=== PATIENT | female | born 1950 | race Caucasian/White ===

== ENCOUNTER → 2023-02-15 11:12 | Outpatient (CLI) | payer MEDICARE, SELFPAY ==
--- NOTE | ~2023-02-15 | US_ITS ---
EXAMINATION: US thyroid DATE: 02/15/2023 11:26 INDICATION: Hyperthyroidism. TECHNIQUE: Multiple ultrasound images of the thyroid were obtained. COMPARISON: None. FINDINGS: The right thyroid lobe measures 3.9 x 1.7 x 1.4 cm. The left thyroid lobe measures 4.0 x 1.6 x 1.8 c m. The thyroid is diffusely heterogeneous and hypoechoic. No discrete nodule. Vascularity is increas ed. IMPRESSION: 1. Heterogeneous, hypervascular thyroid, consistent with chronic lymphocytic (Jose) thyroiditis. Reviewed, dictated and finalized at location A. IMPRESSION: 1. Heterogeneous, hypervascular thyroid, consistent with chronic lymphocytic (H ashimoto) thyroiditis.
== END ==
PROVIDERS: PCP Nurse Practitioner; Visit Provider Nurse Practitioner
DX: E05.90 Thyrotoxicosis, unspecified without thyrotoxic crisis or storm (principal)
CPT/HCPCS: 76536

== ENCOUNTER 2025-09-25 15:53 | Emergency (ER) | payer MEDICARE, SELFPAY ==
[2025-09-25] VITALS (7 sets, daily range): BP systolic 141–149; BP diastolic 62–67; PULSE 77–85; RESP 16–22; TEMP 36.7–36.8; O2SAT 83–94
--- NOTE | ~2025-09-25 | CT_ITS ---
CT brain wo con HISTORY:dizziness COMPARISON: None. TECHNIQUE: Axial images were obtained of the head without intravenous contrast. FINDINGS: No acute intracranial hemorrhage, mass effect or midline shift. No extra-axial fluid collections. Calcified extra-axial over the left frontal lobe may represent a meningioma. This mass measures 2.9 x 1.9 cm calvarium is intact. Visualized paranasal sinuses and mastoid air cells are clear. IMPRESSION: No acute intracranial hemorrhage or extra axial fluid collections. Calcified extra-axial mass over the left frontal lobe suggestive of a meningioma. All CT scans at this facility are performed using low dose modulation techniques as appropriate to perform exam including the following: automated exposure control; use of iterative reconstruction technique; adjustment of the mA and/or kV according to patient size (this includes techniques or standardized protocols for targeted exams where dose is matched to indication/reason for exam). Reviewed, dictated and finalized at location S. BOAT OPERATOR IMPRESSION: No acute intracranial hemorrhage or extra axial fluid collections. Calcified extra-axial mass over the left frontal lobe suggestive of a meningiom a. All CT scans at this facility are performed using low dose modulation techniqu es as appropriate to perform exam including the following: automated exposure c ontrol; use of iterative reconstruction technique; adjustment of the mA and/or kV according to patient size (this includes techniques or standardized protocol s for targeted exams where dose is matched to indication/reason for exam).
--- NOTE | ~2025-09-25 | XR_ITS ---
EXAMINATION: XR chest 2V, 09/25/2025 16:53 VICE PRESIDENT OF PRODUCT MARKETING HISTORY: cp? COMPARISON: No comparisons available. Technique: 2 views obtained. Findings: The lungs are clear, no effusion. No pneumothorax. Heart is normal size. Mediastinal and hilar contours are within normal limits. Bony thorax no acute abnormality. Impression: No acute cardiopulmonary abnormality. Reviewed, dictated and finalized at location P. PRESIDENT OF PRODUCT MARKETING Impression: No acute cardiopulmonary abnormality.
--- OUTSIDE RECORDS SUMMARY | 2025-09-25 14:30 | XMS_ITS | Encounter Summary ---
Author Organization [facility] Address [address] [place] [address] Care Team Providers Care Offset Printing Operator Name Role Phone Abner Carvalho MD Unavailable [phone] Neda Butt MD Primary Care Provider [phone] Reason for Referral * Consultation (Routine) - Pending Review Specialty Diagnoses / Procedures Referred By David dexter Referred To Contact Otolaryngology Diagnoses Non-recurrent acute serous otitis media of right ear Mariposa Knott NP [address] [facility] [address] [place] [address] Phone: tel: fax: [facility] - [address] [address] Phone: tel: fax: Referral ID Status Reason Start Date Expiration Date Visits Requested Visits Authorized [id number] Pending Review Specialty Services Required 5 10/25/2026 1 1 Question Answer Please select the performing region: [facility] [[id number]] Please select the performing department: [facility] [[id number]] # of visits: 1 LIQUORS SALES REPRESENTATIVE Reason for Visit * Reason Comments Hypertension Took baby aspirin wh en felt tingling, patient has had SOB worsening the past 6 months per daughter. Encounter Details Date Type Department Care Team (Late Contact Info) Description 09/25/2025 2:30 PM MALT LIQUORS SALES REPRESENTATIVE Office Visit [facility] at [address] [phone] Mariposa Knott, [employer] [address] [place] [address] [address] [place] [address] Numbness and tingling in left arm (Primary Dx); Shortness of breath; Non-recurrent acute serous otitis media of right ear Social History Tobacco Use Types Packs/Day Years Used Date Smoking Tobacco: Every Day Cigarettes 1 50 Smokeless Tobacco: Never Alcohol Use Standard Drinks/Week Comments Not Currently 0 (1 standard drink = 0.6 oz pur e alcohol) AUDIT-C Answer Date Recorded Frequency of Alcohol Consumption Never 01/11/2019 Average Number of Drinks Not on file 019 Frequency of Binge Drinking Not on file 12/2018 PHQ-2 Answer Date Recorded PHQ-2 Total Score (If total score is 3 or more points, staff should administer the PHQ-9) 2 04/16/2020 Comments No Sex and Gender Information Value Date Recorded Sex Assigned at Not on file Legal Sex Female 2:23 AM MALT LIQUORS SALES REPRESENTATIVE Gender Identity Not on file Sexual Orientation Not on file documented as of this encounter Last Filed Vital Signs Vital Sign Reading Time Taken Comments Blood Pressure 164/76 09/25/2025 2:34 PM MALT LIQUORS SALES REPRESENTATIVE Pulse 100 09/25/2025 2:34 PM MALT LIQUORS SALES REPRESENTATIVE Temperature 36.6 C (97.9 F) 09/25/2025 2:34 PM MALT LIQUORS SALES REPRESENTATIVE Respiratory Rate 18 09/25/2025 2:34 PM MALT LIQUORS SALES REPRESENTATIVE Oxygen Saturation 94% 09/25/2025 2:3 4 PM MALT LIQUORS SALES REPRESENTATIVE Range between 94 and 96 Inhaled Oxygen Concentration - - Weight 65.8 kg (145 lb) 09/25/2025 2:34 PM MALT LIQUORS SALES REPRESENTATIVE Height 165.1 cm (5' 5) 09/25/2025 2:34 PM MALT LIQUORS SALES REPRESENTATIVE Body Mass Index 24.13 09/25/2025 2:34 PM MALT LIQUORS SALES REPRESENTATIVE documented in this encounter Patient Instructions * Patient Instructions* Mariposa Knott, RUTH - 09/25/2025 2:30 PM MALT LIQUORS SALES REPRESENTATIVE If you have no improvement or worsening of your symptoms, please follow up with your Primary Care Provider, Convenient Care and or Emergency Room. I strive to provide you with EXCELLENT service. You may receive a survey after your visit today. If you cannot rate your experience as EXCELLENT, please let us know how we can improve and better meet your needs. Thank you for choosing [facility]! It was my pleasure to see you today, I hope you feel better soon! Mariposa Knott LAMP REPLACER LIQUORS SALES REPRESENTATIVE documented in this encounter Plan of Treatment Scheduled Referrals Name Type Priority Associated Diagnoses Order Schedule Ambulatory referral to ENT Outpatient Referral Routine Non-recurrent acute serous otitis media of right ear Expected: 10/09/2025 (Approximate), Expires: 09/25/2026 documented as of this encounter Procedures Procedure Name Priority Date/Time Associated Diagnosis Comments ECG 12-LEAD Routine 09/25/2025 3:22 PM MALT LIQUORS SALES REPRESENTATIVE Numbness and tingling in left arm Shortness of breath ECG 12-LEAD Routine 09/25/2025 3:10 PM MALT LIQUORS SALES REPRESENTATIVE Numbness and tingling in left arm documented in this encounter Results * ECG 12 lead (09/25/2025 3:22 PM MALT LIQUORS SALES REPRESENTATIVE) Mariposa Knott [employer]ER ECG ORDERABLES Final Resu lt * ECG 12 lead (09/25/2025 3:10 PM MALT LIQUORS SALES REPRESENTATIVE) Mariposa Knott [employer]ER ECG ORDERABLES Final Resu lt documented in this encounter Visit Diagnoses Diagnosis Numbness and tingling in left arm- Primary Shortness of breath Non-recurrent acute serous otitis media of right ear documented in this encounter Care Teams Offset Printing Operator Relationship Specialty Start Date End Date Neda Butt MD PCP - General Nurse Practitioner 08/05/23 Abner Carvalho MD Consulting Physician Neurology 01/12/19 documented as of this encounter
--- NOTE | 2025-09-25 15:58 | ECG_ITS ---
Test Date: 2025-09-25 16:30:23 Measurements Intervals [place] Rate: 82 P: 78 DC: 162 QRS: 49 QRSD: 108 T: 68 QT: 376 QTc: 440 Interpretive Statements SINUS RHYTHM POSSIBLE ANTERIOR MYOCARDIAL INFARCTION , OF INDETERMINATE AGE BASELINE ARTIFACT- I, II, III, AVR, AVL ,AVF, V1-V2 ABNORMAL ECG No previous ECG available for comparison Electronically Signed On 09-25-2025 20:52:14 SUGAR SAMPLER by Marco Camacho D.O.
[2025-09-25] MEDS: ASPIRIN 81 MG CHEWABLE TABLET 324 MG PO (16:57)
--- NOTE | 2025-09-25 16:58 | PC.NURSE ---
PT TOOK 2 81 MG ASA AT HOME THIS AM
[2025-09-25 16:59] LABS: Add Urine Microscopic? NO; Appearance Urine Clear (Clear); Glucose Urine UA Negative (Negative); Hematocrit 43.1 % (37.0-47.0); Hemoglobin 14.3 g/dL (12.0-15.0); Immature Granulocyte Percent A 0.4 % (0-0.5); Leukocyte Esterase Ur Negative LEU/UL (Negative); Lymphocytes Absolute Auto 2.23 K/mm3 (0.9-3.2); Mean Corpuscular HGB Conc 33.2 g/dl (32-36); Mean Corpuscular Hemoglobin 27.2 pg (26-34); Mean Corpuscular Volume 81.9 fl (80-100); Nitrate Urine Negative (Negative); Nucleated Red Blood Cells Absolute Auto 0.000 K/mm3 (0.0-0.012); Nucleated Red Blood Cells Perc 0.0 % (0.0-0.2); Platelet Count Result 154 k/mm3 (150-375); Red Blood Count 5.26 M/mm3 (4.2-5.4); Specific Grav Ur 1.007 (1.001-1.035); White Blood Count 8.2 K/mm3 (4.5-10.0)
--- NOTE | 2025-09-25 17:06 | ED_ITS ---
HPI - Chest Pain General Chief Complaint: Chest Pain <Magy Morales PA-C - Last Filed: 09/27/25 09:18> Stated Complaint: chest pain work up <Magy Morales PA-C - Last Filed: 09/27/25 09:18> Time Seen by Provider: 09/25/25 17:06 <Magy Morales PA-C - Last Filed: 09/27/25 09:18> Focused HPI: This is a 75 year old female that presents to the ER for tingling down her left arm. Reports this happened at 12 and lasted for 5-10 minutes. Reports some lightheadedness, dizziness. Denies chest pain, shortness of breath. GENERAL: Well-appearing, well-nourished, and in no acute distress. HEAD: Normocephalic, atraumatic. CHEST: No respiratory distress. Scattered wheezing. HEART: Regular rate and rhythm.? NEURO: ?Alert and oriented x3. Patient screened in triage and initial orders placed.? ?Additional care and disposition to be based upon?diagnostic testing and treatment. <Magy Morales PA-C - Last Filed: 09/27/25 09:18> History of Present Illness HPI narrative: Agree with above HPI. <RAYO Ramos Last Filed: 09/26/25 02:51> Related Data Allergies/Adverse Reactions: Allergies Allergy/AdvReac Type Severity Reaction Status Date / Time Sulfa (Sulfonamide Allergy Severe Dyspnea / Verified 09/25/25 15:57 Antibiotics) SOB <Magy Morales PA-C - Last Filed: 09/27/25 09:18> Review of Systems 2 Review of Systems: All systems reviewed & are unremarkable except as noted in HPI and below <RAYO Ramos Last Filed: 09/26/25 02:51> PMFSH Past Medical History Medical History: Medical History (Updated 09/26/25 @ 00:00 by Judy Carrera) Hypertension <Magy Morales PA-C - Last Filed: 09/27/25 09:18> Social History Social History: Social History (Updated 09/25/25 @ 17:07 by Magy Morales PA-C) Smoking status: Current every day smoker Tobacco type: cigarettes <Magy Morales PA-C - Last Filed: 09/27/25 09:18> Exam 2 Narrative: GENERAL: No acute distress. Tearful. HEAD: Normocephalic, atraumatic. EYES: PERRLA and EOMI. ENT: Nares clear, no rhinorrhea or epistaxis. Mucous membranes moist. Oropharynx without tonsillar hypertrophy exudate or other lesions. Bilateral TMs pearly donaldson non-bulging NECK: Supple. No adenopathy or masses. No carotid bruits or JVD CHEST: Lower right lung field mild expiratory wheezing. No respiratory distress. HEART: Regular rate and rhythm. No murmur heard. Normal peripheral pulses. ABDOMEN: Soft, nontender, nondistended, normal active bowel sounds. EXTREMITIES: Normal range of motion. No edema. SKIN: Warm, dry, no rash. NEURO: No focal deficits. Alert and oriented x3. PSYCH: Normal mood and affect <RAYO Ramos Last Filed: 09/26/25 02:51> Course Vital Signs Vital signs: Vital Signs Temperature 98.1 F 09/25/25 16:20 Pulse Rate 83 09/25/25 16:20 Respiratory Rate 16 09/25/25 16:20 Blood Pressure 141/62 H 09/25/25 16:20 Pulse Oximetry 83 L 09/25/25 16:20 Temperature 98.3 F 09/25/25 20:32 Pulse Rate 80 09/25/25 20:32 Respiratory Rate 17 09/25/25 20:32 Blood Pressure 143/67 H 09/25/25 20:32 Pulse Oximetry 93 09/25/25 20:32 Oxygen Delivery Room Air 09/25/25 18:31 <Magy Morales PA-C - Last Filed: 09/27/25 09:18> Vital Signs Temperature 98.1 F 09/25/25 16:20 Pulse Rate 83 09/25/25 16:20 Respiratory Rate 16 09/25/25 16:20 Blood Pressure 141/62 H 09/25/25 16:20 Pulse Oximetry 83 L 09/25/25 16:20 Temperature 98.3 F 09/25/25 20:32 Pulse Rate 80 09/25/25 20:32 Respiratory Rate 17 09/25/25 20:32 Blood Pressure 143/67 H 09/25/25 20:32 Pulse Oximetry 93 09/25/25 20:32 Oxygen Delivery Room Air 09/25/25 18:31 <RAYO Ramos - Last Filed: 09/26/25 02:51> [facility] Narrative Medical decision making narrative: This is a 75 year old female that presents to the ER for tingling down her left arm. Reports this happened at 12 and lasted for 5-10 minutes. Reports some lightheadedness, dizziness. Denies chest pain, shortness of breath. Upon my initial assessment, patient is tearful reporting no symptoms stating she is frustrated and wants to go home. I was able to calm the patient down to understand what was going on today. Patient states she went to today to rule out a stroke due to dizziness. She states they ruled it out but that they sent her to the ED as she had minor left arm numbness/tingling, reports never having chest pain. CT head demonstrates no acute abnormalities. Intact neuro exam. Administered DuoNeb due to mild wheezing on exam. Wheezing improved after treatment. Troponin negative. Cardiac risk factors reviewed. HEART score = 3. EKGs and labs are without significant high risk changes. Patient is felt likely low risk for ACS and reasonable for further risk stratification testing as an outpatient. Pain was not sudden or maximal in onset without tearing or ripping quality. No other signs or symptoms to suggest aortic dissection. A low-risk Wells criteria is noted, PE is felt to be unlikely. No pneumonia seen on evaluation today. Patient is felt to be a reasonable candidate for continued evaluation as an outpatient. Given reasons to return. <RAYO Ramos - Last Filed: 09/26/25 02:51> Differential Diagnosis Differential Diagnosis: Differential diagnostic considerations for chest pain include ACS, aortic dissection, pneumothorax, pulmonary embolus, [place]/pericarditis, angina, STEMI, esophageal abnormality, GI etiology, pneumonia, rib fracture, biliary colic, atypical/non-cardiac (MSK, etc). <RAYO Ramos - Last Filed: 09/26/25 02:51> Lab Data [facility] Lab Attestation statement: I personally reviewed the patient's lab results. <RAYO Ramos - Last Filed: 09/26/25 02:51> Result diagrams: 09/25/25 16:51 09/25/25 16:51 <Magy Morales PA-C - Last Filed: 09/27/25 09:18> Labs: Lab Results 09/25/25 09/25/25 Range/Units 16:51 19:39 WBC 8.2 (4.5-10.0) K/mm3 RBC 5.26 (4.2-5.4) M/mm3 Hgb 14.3 (12.0-15.0) g/dL Hct 43.1 (37.0-47.0) % MCV 81.9 (80-100) fl MCH 27.2 (26-34) pg MCHC 33.2 (32-36) g/dl RDW 12.1 (11.5-14.5) % Plt Count 154 (150-375) k/mm3 MPV 11.5 H (7.4-10.4) fl Immature Gran % (Auto) 0.4 (0-0.5) % Neut % (Auto) 65.0 (45.5-73.1) % Lymph % (Auto) 27.3 (18.3-44.2) % [place] % (Auto) 6.7 (2.6-8.5) % Eos % (Auto) 0.5 (0-4.4) % Baso % (Auto) 0.1 L (0.2-1.2) % Lymph # (Auto) 2.23 (0.9-3.2) K/mm3 [place] # (Auto) 0.6 (0.1-0.6) K/mm3 Eos # (Auto) 0.0 (0-0.3) K/mm3 Baso # (Auto) 0.0 (0.0-0.1) K/mm3 Abs Immat Gran (auto) 0.03 (0.00-0.031) K/mm3 Absolute Neuts (auto) 5.3 (1.3-6.7) K/mm3 Absolute Nucleated RBC 0.000 (0.0-0.012) K/mm3 Nucleated RBC % 0.0 (0.0-0.2) % PT 14.0 (11.1-14.7) Seconds INR 1.1 APTT 29.1 (22.3-36.8) Seconds Sodium 140 (137-145) mmol/L Potassium 4.1 (3.4-5.0) mmol/L Chloride 106 (98-107) mmol/L Carbon Dioxide 23 (22-30) mmol/L Anion Gap 11 (4-12) mmol/L BUN 11 (7-17) mg/dL Creatinine 0.61 L (0.7-1.0) mg/dL Estim Creat Clear Calc 63 ml/min Estimated GFR > 60 (59 - ) Glucose 103 (65-110) mg/dL Calcium 9.5 (8.4-10.2) mg/dL Total Bilirubin 0.6 (0.2-1.3) mg/dL AST 47 H (14-36) U/L ALT 32 (6-35) U/L Alkaline Phosphatase 112 (38-126) U/L Troponin I < 0.012 < 0.012 (0.000-0.034) ng/mL Total Protein 8.9 H (6.3-8.2) g/dL Albumin 4.5 (3.5-5.1) g/dL Lipase 97 (23-300) U/L Urine Color Yellow (Yellow) Urine Appearance Clear (Clear) Urine pH 5.5 (5.0-9.0) Ur Specific Delta 1.007 (1.001-1.035) Urine Protein Negative (Negative) mg/dL Urine Glucose (UA) Negative (Negative) mg/dL Urine Ketones Negative (Negative) mg/dL Ur Blood (Man) Negative (Negative) Urine Nitrate Negative (Negative) Urine Bilirubin Negative (Negative) Urine Urobilinogen 0.2 (<2.0) mg/dL Leukocyte Esterase Rfl Negative (Negative) CHANCE/UL <Magy Morales PA-C - Last Filed: 09/27/25 09:18> Lab Results 09/25/25 09/25/25 Range/Units 16:51 19:39 WBC 8.2 (4.5-10.0) K/mm3 RBC 5.26 (4.2-5.4) M/mm3 Hgb 14.3 (12.0-15.0) g/dL Hct 43.1 (37.0-47.0) % MCV 81.9 (80-100) fl MCH 27.2 (26-34) pg MCHC 33.2 (32-36) g/dl RDW 12.1 (11.5-14.5) % Plt Count 154 (150-375) k/mm3 MPV 11.5 H (7.4-10.4) fl Immature Gran % (Auto) 0.4 (0-0.5) % Neut % (Auto) 65.0 (45.5-73.1) % Lymph % (Auto) 27.3 (18.3-44.2) % [place] % (Auto) 6.7 (2.6-8.5) % Eos % (Auto) 0.5 (0-4.4) % Baso % (Auto) 0.1 L (0.2-1.2) % Lymph # (Auto) 2.23 (0.9-3.2) K/mm3 [place] # (Auto) 0.6 (0.1-0.6) K/mm3 Eos # (Auto) 0.0 (0-0.3) K/mm3 Baso # (Auto) 0.0 (0.0-0.1) K/mm3 Abs Immat Gran (auto) 0.03 (0.00-0.031) K/mm3 Absolute Neuts (auto) 5.3 (1.3-6.7) K/mm3 Absolute Nucleated RBC 0.000 (0.0-0.012) K/mm3 Nucleated RBC % 0.0 (0.0-0.2) % PT 14.0 (11.1-14.7) Seconds INR 1.1 APTT 29.1 (22.3-36.8) Seconds Sodium 140 (137-145) mmol/L Potassium 4.1 (3.4-5.0) mmol/L Chloride 106 (98-107) mmol/L Carbon Dioxide 23 (22-30) mmol/L Anion Gap 11 (4-12) mmol/L BUN 11 (7-17) mg/dL Creatinine 0.61 L (0.7-1.0) mg/dL Estim Creat Clear Calc 63 ml/min Estimated GFR > 60 (59 - ) Glucose 103 (65-110) mg/dL Calcium 9.5 (8.4-10.2) mg/dL Total Bilirubin 0.6 (0.2-1.3) mg/dL AST 47 H (14-36) U/L ALT 32 (6-35) U/L Alkaline Phosphatase 112 (38-126) U/L Troponin I < 0.012 < 0.012 (0.000-0.034) ng/mL Total Protein 8.9 H (6.3-8.2) g/dL Albumin 4.5 (3.5-5.1) g/dL Lipase 97 (23-300) U/L Urine Color Yellow (Yellow) Urine Appearance Clear (Clear) Urine pH 5.5 (5.0-9.0) Ur Specific Delta 1.007 (1.001-1.035) Urine Protein Negative (Negative) mg/dL Urine Glucose (UA) Negative (Negative) mg/dL Urine Ketones Negative (Negative) mg/dL Ur Blood (Man) Negative (Negative) Urine Nitrate Negative (Negative) Urine Bilirubin Negative (Negative) Urine Urobilinogen 0.2 (<2.0) mg/dL Leukocyte Esterase Rfl Negative (Negative) CHANCE/UL <RAYO Ramos - Last Filed: 09/26/25 02:51> Imaging Data Attestation: I personally reviewed and interpreted this imaging study as follows: < RAYO Ramos - Last Filed: 09/26/25 02:51> Radiologist's impression: ITS Impressions Chest X-Ray 09/25/25 17:11 Impression: No acute cardiopulmonary abnormality. Head CT 09/25/25 19:25 IMPRESSION: No acute intracranial hemorrhage or extra axial fluid collections. Calcified extra-axial mass over the left frontal lobe suggestive of a meningioma. All CT scans at this facility are performed using low dose modulation techniques as appropriate to perform exam including the following: automated exposure control; use of iterative reconstruction technique; adjustment of the mA and/or kV according to patient size (this includes techniques or standardized protocols for targeted exams where dose is matched to indication/reason for exam). <Magy Morales PA-C - Last Filed: 09/27/25 09:18> ITS Impressions Chest X-Ray 09/25/25 17:11 Impression: No acute cardiopulmonary abnormality. Head CT 09/25/25 19:25 IMPRESSION: No acute intracranial hemorrhage or extra axial fluid collections. Calcified extra-axial mass over the left frontal lobe suggestive of a meningioma. All CT scans at this facility are performed using low dose modulation techniques as appropriate to perform exam including the following: automated exposure control; use of iterative reconstruction technique; adjustment of the mA and/or kV according to patient size (this includes techniques or standardized protocols for targeted exams where dose is matched to indication/reason for exam). <RAYO Ramos Last Filed: 09/26/25 02:51> ECG Data EKG #1: ECG completion date: 09/25/25 <RAYO Ramos Last Filed: 09/26/25 02:51> ECG completion time: 16:30 <RAYO Ramos Last Filed: 09/26/25 02:51> normal rate, sinus rhythm and no acute changes <RAYO Ramos Last Filed: 09/26/25 02:51> Critical Care Time Critical Care Time Critical Care Time: No <NADIAR Luz Last Filed: 09/27/25 09:18> Discharge Plan Discharge Clinical Impression: Numbness and tingling in left arm, Dizziness <NADIRA Luz Last Filed: 09/27/25 09:18> Patient Disposition: Home <NADIRA Luz Last Filed: 09/27/25 09:18> Condition: Stable <NADIRA Luz Last Filed: 09/27/25 09:18> Instructions: COPD (Chronic Obstructive Pulmonary Disease) (ED), Dizziness (ED), Chronic Lung Disease and Infection Prevention (ED) <NADIRA Luz Last Filed: 09/27/25 09:18> Additional Instructions: Return to the emergency department if you experience fever, chest pain, shortness of breath, abdominal pain with nausea and vomiting, weakness, numbness/tingling, or any other symptoms that are concerning to you. Follow up with primary care doctor. <Magy Morales PA-C - Last Filed: 09/27/25 09:18> Patient Language: Kyrgyz <NADIRA Luz Last Filed: 09/27/25 09:18> Follow-up/Referrals: Filomena,ANKUR Stephenson [Primary Care Provider, Unknown] <Magy Morales PA-C - Last Filed: 09/27/25 09:18> Quality HEART score for chest pain patients History: slightly suspicious <RAYO Ramos - Last Filed: 09/26/25 02:51> ECG: normal <RAYO Ramos - Last Filed: 09/26/25 02:51> Age: > or = to 65 years <RAYO Ramos - Last Filed: 09/26/25 02:51> Risk factors: 1 or 2 risk factors <RAYO Ramos Last Filed: 09/26/25 02:51> Troponin: < or = to 1x normal limit <RAYO Ramos - Last Filed: 09/26/25 02:51> Heart score: 3 <Magy Morales PA-C - Last Filed: 09/27/25 09:18> 3 <RAYO Ramos - Last Filed: 09/26/25 02:51>
[2025-09-25 17:12] LABS: Alanine Aminotransferase 32 U/L (6-35); Albumin Level 4.5 g/dL (3.5-5.1); Alkaline Phosphatase 112 U/L (38-126); Anion Gap 11 mmol/L (4-12); Aspartate Amino Transferase 47 U/L (14-36); Bilirubin,Total 0.6 mg/dL (0.2-1.3); Blood Urea Nitrogen 11 mg/dL (7-17); Calcium 9.5 mg/dL (8.4-10.2); Carbon Dioxide 23 mmol/L (22-30); Chloride 106 mmol/L (98-107); Estimated CRCL calculation 63 ml/min; Estimated Glomerular Filt Rate > 60; Glucose 103 mg/dL (65-110); INR 1.1; Lipase 97 U/L (23-300); Potassium 4.1 mmol/L (3.4-5.0); Prothrombin Time 14.0 Seconds (11.1-14.7); Sodium 140 mmol/L (137-145); Total Protein 8.9 g/dL (6.3-8.2)
[2025-09-25 17:13] LABS: Partial Thromboplastin Time 29.1 Seconds (22.3-36.8)
[2025-09-25 17:22] LABS: Troponin I < 0.012 ng/mL (0.000-0.034)
--- OUTSIDE RECORDS SUMMARY | 2025-09-25 17:57 | XMS_ITS | Clinical Summary ---
Author Organization [facility] Address [address] [place] [address] Care Team Providers Care Corn Husk Baler Name Role Phone Abner Carvalho MD Unavailable [phone] Neda Butt MD Primary Care Provider [phone] Allergies Active Allergy Reactions Criticality Noted Date Comments Sulfa (Sulfonamide Antibiotics) Anaphylaxis High 12/2018 Medications aspirin 81 mg enteric coated tablet Take 1 tablet (81 mg total) by mouth daily 30 tablet 11 01/13/2019 Active amLODIPine (NORVASC) 5 mg tablet Take 1 tablet (5 mg total) by mouth daily 04/16/2023 Active lisinopriL (PRINIVIL,ZESTR IL) 10 mg tablet 09/06/2024 Active ALPRAZolam (XANAX) 0.25 mg tabletIndicatio ns:Anxiety Take 1 tablet (0.25 mg total) by mouth nightly as needed for anxiety 10 tablet 11/20/2024 Active Active Problems Problem Noted Date Diagnosed Date Anxiety 11/20/2024 Essential hypertension 11/20/2024 Hyperthyroidism 11/30/2023 Assessment & Plan (09/13/2024 1:43 PM CARBON PAPER INTERLEAFER): Chronic problem. Currently taking methimazole 2.5mg daily. Will update labs today. Does not mychart. Verified phone #/address to contact re: results. Assessment & Plan (11/30/2023 1:10 PM CARBON PAPER INTERLEAFER): Chronic, improving control Patient currently on methimazole 2.5 mg oral daily Recheck thyroid function test today and further plans based on it Reviewed patient thyroid labs from today Thyroid function test are normal range Continue current dose of methimazole Repeat thyroid labs in 3 months Meningioma 03/20/2019 Assessment & Plan (03/20/2019 11:46 AM CDT): Incidental 3 cm left frontal meningioma found on MRI. Could consider repeat imaging in one year to document stability. Visual changes 01/11/2019 Assessment & Plan (03/20/2019 11:44 AM CDT): Tunnel vision changes likely pre-syncopal although did not right sided 50% stenosis and left sided < 40% stenosis that should be monitored with repeat MRA in 6-12 months given continued smoking and hypertension. She has started aspirin and statin for stroke risk reduction and aware that continued hypertension and smoking are significant risk factors for worsened carotid stenosis and stroke. I encouraged her to monitor blood pressure at home and consider anti- hypertensive per PCP if continues to be elevated. I again addressed smoking cessation and she remains precontemplative although did allow that maybe someday I'll think about quitting. Call if recurrent issues/new concern and follow up in 3-6 months and can consider repeat MRA neck at that time. Stenosis of right carotid artery 01/11/2019 Tobacco abuse 01/11/2019 Goiter 01/11/2019 Encounters Date Type Department Care Team Description 09/25/2025 2:30 PM CARBON PAPER INTERLEAFER Office Visit [facility] at [address] [address] Mariposa Knott, RUTH Numbness and tingling in left arm (Primary Dx); Shortness of breath; Non-recurrent acute serous otitis media of right ear from Last 3 Months Surgical History Surgery Date Site/Laterality Comments HYSTERECTOMY CATARACT EXTRACTION 12/10/2019 - 01/09/2020 Left Medical History Medical History Date Comments Brain tumor (benign) Hyperlipidemia Allergic Meningioma (HCC) HTN (hypertension) Carotid artery stenosis Family History Medical History Relation Name Comments Lung cancer Sister 1 Bladder Cancer Sister 2 Relation Name Status Comments Brother Alive Father Mother Sister 1 Alive Sister 2 Alive Social History Tobacco Use Types Packs/Day Years [...] on file Legal Sex Female 2:23 AM CARBON PAPER INTERLEAFER Gender Identity Not on file Sexual Orientation Not on file Last Filed Vital Signs Vital Sign Reading Time Taken Comments Blood Pressure 164/76 09/25/2025 2:34 PM CARBON PAPER INTERLEAFER Pulse 100 09/25/2025 2:34 PM CARBON PAPER INTERLEAFER Temperature 36.6 C (97.9 F) 09/25/2025 2:34 PM CARBON PAPER INTERLEAFER Respiratory Rate 18 09/25/2025 2:34 PM CARBON PAPER INTERLEAFER Oxygen Saturation 94% 09/25/2025 2:3 4 PM CARBON PAPER INTERLEAFER Range between 94 and 96 Inhaled Oxygen Concentration - - Weight 65.8 kg (145 lb) 09/25/2025 2:34 PM CARBON PAPER INTERLEAFER Height 165.1 cm (5' 5) 09/25/2025 2:34 PM CARBON PAPER INTERLEAFER Body Mass Index 24.13 09/25/2025 2:34 PM CARBON PAPER INTERLEAFER Plan of Treatment Health Maintenance Due Date Last Done Comments Hepatitis C Screening 1950 Osteoporosis Screening-Bone Density Scan 1950 DTaP/Tdap/Td Vaccine (1 - Tdap) 1960 Hepatitis B Screening 1967 Pneumococcal vaccine 65+ (1 of 2 - PCV) 1968 Lung Cancer Screening 1999 Zoster Vaccine (1 of 2) 1999 Depression Screening 04/16/2021 04/16/2020, 12/05/19 20 Well Visit 65+ 04/16/2021 04/16/2020 Fall Risk Assessment 11/29/2024 11/29/2023, 04/16/2020, 12/05/2019 Covid-19 Vaccine (3 - season) 2025, 12/06/2020 Influenza Vaccine (#1) 2025 Procedures Procedure Name Priority Date/Time Associated Diagnosis Comments ECG 12-LEAD Routine 09/25/2025 3:22 PM CARBON PAPER INTERLEAFER Numbness and tingling in left arm Shortness of breath ECG 12-LEAD Routine 09/25/2025 3:10 PM CARBON PAPER INTERLEAFER Numbness and tingling in left arm from Last 3 Months Results * ECG 12 lead (09/25/2025 3:22 PM CARBON PAPER INTERLEAFER) Mariposa Knott NP ECG ORDERABLES Final Resu lt * ECG 12 lead (09/25/2025 3:10 PM CARBON PAPER INTERLEAFER) Mariposa Knott HYDROELECTRIC PLANT STRUCTURAL ENGINEER ECG ORDERABLES Final Resu lt from Last 3 Months Insurance MEDICARE [facility] AETNA [facility] [employer] Advance Directives For more information, please contact: [phone] * Full Code (Latest Code Status on File) Date Activated Date Inactivated Comments 01/11/2019 5:08 PM 01/12/2019 9:15 PM Care Teams Corn Husk Baler Relationship Specialty Start Date End Date Neda Butt MD PCP - General Nurse Practitioner 08/05/23 Abner Carvalho MD Consulting Physician Neurology 01/12/19
--- OUTSIDE RECORDS SUMMARY | 2025-09-25 17:57 | XMS_ITS | Clinical Summary ---
Author Organization [facility] Address [address] [place] [address] Care Team Providers Care Network Internship Name Role Phone Neda Butt NP Primary Care Provider [phone] Allergies Active Allergy Reactions Criticality Noted Date Comments Sulfa Antibiotics GI Upset Medium 03/05/2022 Medications * This document contains information received from the source organization and may not represent a complete record from that organization. aspirin 81 MG chewable tablet Chew 1 tablet (81 mg total) by mouth daily. Active methIMAzole (TAPAZOLE) 5 MG tabletIndication s:Jose's thyroiditis,Hype rthyroidism Take 0.5 tablets (2.5 mg total) by mouth daily. 30 tablet 4 Active Additional Information Patient not taking.Reason: off 6 wks., Reported on 04/26/2025 lisinopril (PRINIVIL) 10 MG tabletIndication s:Hypertension, unspecified type TAKE 1 TABLET(10 MG) BY MOUTH DAILY 90 tablet 5 Active amLODIPine (NORVASC) 5 MG tabletIndication s:Uncontrolled hypertension TAKE 1 TABLET(5 MG) BY MOUTH DAILY 90 tablet 5 Active Active Problems Problem Noted Date Diagnosed Date Hyperthyroidism 02/25/2023 Stenosis of carotid artery, unspecified laterali ty 03/06/2022 Cigarette nicotine dependenc e with nicotine-induced disorder 03/06/2022 Coronary artery disease with out angina pectoris, unspecified vessel or lesion type, unspecified whether [place]aguy[place] or transplanted heart 03/06/2022 Hypertension, unspecified type 03/06/2022 Resolved Problems Problem Noted Date Diagnosed Date Resolved Date Panic attack as reaction to stress 04/30/2022 05/29/2024 Immunizations Immunization Administration Dates Next Due PFIZER COVID-19 (ORIGINAL FO RMULATION, PURPLE CAP) mRNA, LNP-S, PF, 30 MCG/0.3 ML DOSE 01/05/2021,12/06/2020 Social History Tobacco Use Types Packs/Day Years Used Date Smoking Tobacco: Every Day Cigarettes 0.8 52 Passive Smoke Exposure: Past Smokeless Tobacco: Never Tobacco Cessation:Ready to Q uit: No; Counseling Given: Yes Alcohol Use Standard Drinks/Week Comments Not Currently 0 (1 standard drink = 0.6 oz pur e alcohol) PHQ-2 Answer Date Recorded Patient Health Questionnaire-2 Score 3 04/26/2025 Comments No Sex and Gender Information Value Date Recorded Sex Assigned at Not on file Legal Sex Female 8:15 AM CDT Gender Identity Not on file Sexual Orientation Not on file Last Filed Vital Signs Vital Sign Reading Time Taken Comments Blood Pressure 130/60 04/26/2025 1:43 PM CDT Pulse 77 04/26/2025 1:16 PM CDT Temperature 36.7 C (98.1 F) 04/26/2025 1:16 PM CDT Respiratory Rate 22 05/29/2024 12:58 PM CDT Oxygen Saturation 95% 04/26/2025 1:16 PM CDT Inhaled Oxygen Concentration - - Weight 68.5 kg (151 lb) 04/26/2025 1:16 PM CDT Height 167.6 cm (5' 6) 04/26/2025 1:16 PM CDT Body Mass Index 24.37 04/26/2025 1:16 PM CDT Plan of Treatment Health Maintenance Due Date Last Done Comments ASCVD Statin 1950 DTaP, Tdap and Td Vaccines ( 1 - Tdap) 1968 Pneumococcal Vaccine: 50+ Years (1 of 2 - PCV) 1968 Zoster Vaccines (1 of 2) 1999 Dexa Scan (General) 2014 RSV Immunization or 60+ Years (1 - 1-dose 75+ series) 2024 Lung Cancer Screening 08/07/2024 08/07/2023 COVID-19 Vaccine (3 - 2024-2 6 season) 2025 01/05/2021, 12/06/2020 ASCVD LDL 06/27/2025 06/27/2024, 06/11/2022 Influenza Adult (#1) 2025 Annual Medicare Wellness Visit 09/07/2049 Postponed from 07/27 (Patient Refused) Hepatitis C Completed 06/11/2022 PHQ-2 (Physician [place]) Completed 04/26/2025 Hepatitis A Vaccines Aged Out No long er eligible based on patient's age to complete this topic Meningococcal B Vaccine Aged Out No l onger eligible based on patient's age to complete this topic Meningococcal Vaccine Aged Out No rich vahid eligible based on patient's age to complete this topic RSV Immunizations Under 20 Months Aged Out No longer eligible b ased on patient's age to complete this topic Procedures Procedure Name Priority Date/Time Associated Diagnosis Comments LIPID PANEL Routine 06/27/2024 1:11 PM CDT Coronary artery disease without angina pectoris, unspecified vessel or lesion type, unspecified whether [place] or transplanted heart CT LUNG SCREENING Routine 08/07/2023 4:0 5 PM CDT Nicotine dependence, cigarettes, uncomplicated HEPATITIS C ANTIBODY W/RFX TO HCV RNA Routine 06/11/2022 7:08 AM CDT from Last 3 Months or Most Recently Relevant to Health Maintenance Results * (ABNORMAL) LIPID PANEL (06/27/2024 1:11 PM CDT) CHOLESTEROL 245(H) <200 MG/DL 06/27/2024 7:40 PM CDT [facility] TRIGLYCERIDES 244(H) <150 MG/DL 06/27/2024 7:40 PM CDT [facility] HDL 39(L) >40 MG/DL 06/27/2024 7:40 PM CDT [facility] LDL-C 157(H) <100 MG/DL 06/27/2024 7:40 PM CDT [facility] VLDL CALCULATION 49(H) 5 - 28 MG/DL 06/27/2024 7:40 PM CDT [facility] CHOL/HDL RATIO 6.3(H) 0.0 - 4.0 06/27/2024 7:40 PM CDT [facility] LDL/HDL 4.0(H) 0.41 - 2.13 06/27/2024 7:40 PM CDT [facility] NON HDL CHOLESTEROL 206(H) <140 MG/DL 06/27/2024 7:40 PM CDT [facility] 06/27/2024 1:11 PM CDT us Neda Butt EMBEDDED LINUX ENGINEER LABORATORY Final Res ult [facility] [address] [place] [address], [place] [phone] * CT LUNG SCREENING (08/07/2023 4:05 PM CDT) Anatomical Region Laterality Modality Chest Computed Tomogra phy 08/17/2023 5:33 PM TRAINMASTER Impressions 08/17/2023 5:39 PM TRAINMASTER =====Impression:===== LUNG-RADS Category/Recommendation: Category 2 /Continue annual screening with LDCT in 12 months. Suggest follow up exam on or around 2024-08-07. LUNG-RADS category S: Negative, no new/unknown potentially significant incidental findings requiring urgent additional evaluation. Other Incidental Findings: As above. Thank you for choosing the [facility] Lung Screening Program. Ordered By: NEDA BUTT Interpreted By: Rufus Banda MD, 08/17/2023 5:33 PM Narrative 08/17/2023 5:39 PM TRAINMASTER Examination: Lung Screening Low-Dose Ct Thorax Without Contrast Exam date/time: 08/07/2023 3:46 PM Clinical history: Asymptomatic patient meeting NCCN high-risk criteria for lung screening. * 73 years * 30 pack years or greater * Current smoker of have quit smoking within the last 15 years. Comparison: None. Technique: Noncontrast, helical, low-dose CT (LDCT) chest per standard departmental protocol. A dose lowering technique was used for this procedure, which may include, but is not limited to, dose reduction technique, automated exposure control, the use of iterative reconstruction, and ALARA (As Low As Reasonably Achievable) / Image Gently techniques. FINDINGS: Lung Screening Specific (LUNG-RADS): Nodule 1: 8.0 mm, Non-solid nodule, Left Lower Lobe Image slice# 59 Nodule 2: 5.5 mm, Solid nodule, Right Upper Lobe Image slice# 27 Nodule 3: 4.9 mm, Solid nodule, Right Upper Lobe Image slice# 19 Potentially Significant Incidentals (LUNG-RADS category S): None. Additional Findings: Mild emphysematous changes and mild chronic bronchitis. Bilateral apical pleural and parenchymal scarring. Moderate coronary artery calcifications. Atherosclerotic aorta and great vessels. Additional scattered vascular calcifications elsewhere. Small hiatal hernia. Left hilar lymph node calcifications and multiple calcified granulomas. No suspicious adenopathy. Diffuse osteopenia and degenerative changes. Procedure Note Rufus Banda MD - 08/17/2023 Examination: Lung Screening Low-Dose Ct Thorax Without Contrast Exam date/time: 08/07/2023 3:46 PM Clinical history: Asymptomatic patient meeting NCCN high-risk criteria forlung screening. * 73 years * 30 pack years or greater * Current smoker of have quit smoking within the last 15 years. Comparison: None. Technique: Noncontrast, helical, low-dose CT (LDCT) chest per standarddepartmental protocol. A dose lowering technique was used for thisprocedure, which may include, but is not limited to, dose reductiontechnique, automated exposure control, the use of iterativereconstruction, and ALARA (As Low As Reasonably Achievable) / Image Gentlytechniques. FINDINGS: Lung Screening Specific (LUNG-RADS): Nodule 1: 8.0 mm, Non-solid nodule, Left Lower Lobe Image slice# 59 Nodule 2: 5.5 mm, Solid nodule, Right Upper Lobe Image slice# 27 Nodule 3: 4.9 mm, Solid nodule, Right Upper Lobe Image slice# 19 Potentially Significant Incidentals (LUNG-RADS category S): None. Additional Findings: Mild emphysematous changes and mild chronicbronchitis. Bilateral apical pleural and parenchymal scarring. Moderatecoronary artery calcifications. Atherosclerotic aorta and great vessels.Additional scattered vascular calcifications elsewhere. Small hiatalhernia. Left hilar lymph node calcifications and multiple calcifiedgranulomas. No suspicious adenopathy. Diffuse osteopenia and degenerativechanges. =====Impression:===== LUNG-RADS Category/Recommendation: Category 2 /Continue annual screeningwith LDCT in 12 months. Suggest follow up exam on or around 2024-08-07. LUNG-RADS category S: Negative, no new/unknown potentially significantincidental findings requiring urgent additional evaluation. Other Incidental Findings: As above. Thank you for choosing the [facility]. Ordered By: NEDA BUTT Interpreted By: Rufus Banda MD, 08/17/2023 5:33 PM us Neda Butt EMBEDDED LINUX ENGINEER CT Final Res ult * HEPATITIS C ANTIBODY W/RFX TO HCV RNA (06/11/2022 7:08 AM CDT) HEPATITIS C AB NON-REACTI VE NON-REACT NORBERTO [facility] SIGNAL TO CUTOFF 0.[address] <[address] [facility] Comment: HCV antibody was non-reactive. There is no laboratory evidence of HCV infection. In most cases, no further action is required. However, if recent HCV exposure is suspected, a test for HCV RNA (test code 01008) is suggested. For additional information please refer to http://education.Futubra.ElasticBox/faq/QWL95z0 (This link is being provided for informational/ educational purposes only.) 06/11/2022 7:08 AM CDT 06/11/2022 7:09 AM CDT Narrative [facility] - 06/16/2022 11:28 PM CDT FASTING:YES FASTING: YES us Neda Butt EMBEDDED [employer] ENGINEER [employer]ORATORY Final Res ult [facility] [address] [address] [id number] from Last 3 Months or Most Recently Relevant to Health Maintenance Insurance [employer] MEDICARE Care Teams Network Internship Relationship Specialty Start Date End Date Neda Butt NP [address] [place] [address] PCP - General NURSE PRACTITIONER 03/02/22
--- NOTE | 2025-09-25 18:07 | PCRCNOTE ---
spoke with Vivi LAWLER and she will call when patient gets in a room for neb treatment.
[2025-09-25] MEDS: IPRATROPIUM 0.5 MG/ALBUTEROL SULFATE 2.5 MG (BASE) AMPUL.NEB 3 ML INHALATION (19:11)
--- NOTE | 2025-09-25 19:14 | PCRCNOTE ---
Tx delayed during previous shift.
--- NOTE | 2025-09-25 19:36 | ECG_ITS ---
Test Date: 2025-09-25 19:41:46 Measurements Intervals [place] Rate: 81 P: 79 MO: 176 QRS: 57 QRSD: 89 T: 65 QT: 367 QTc: 427 Interpretive Statements SINUS RHYTHM DELAYED PRECORDIAL R/S TRANSITION BASELINE ARTIFACT- I, II, III, AVR, AVL, AVF, V1-V6 BORDERLINE ECG Compared to ECG 09/25/2025 16:30:23 NO SIGNIFICANT CHANGE Electronically Signed On 09-25-2025 20:44:37 LEARNING ANALYST by Marco Camacho D.O.
--- NOTE | 2025-09-25 20:10 | PC.NURSE ---
pt received breathing treatment per RT
[2025-09-25 20:12] LABS: Troponin I < 0.012 ng/mL (0.000-0.034)
== END 2025-09-25 20:35 | disposition home or self-care (01) ==
PROVIDERS: Emergency Medicine; PCP Nurse Practitioner
DX: R20.2 Paresthesia of skin (principal); R20.0 Anesthesia of skin; R42 Dizziness and giddiness; I10 Essential (primary) hypertension; F17.210 Nicotine dependence, cigarettes, uncomplicated; R94.31 Abnormal electrocardiogram [ECG] [EKG]
CPT/HCPCS: 36415; 70450; 71046; 80053; 81003; 83690; 84484; 85025; 85610; 85730; 93005; 94640; 99284; A9270; J7512